=== PATIENT | male | born 1980 | race Caucasian/White ===

== ENCOUNTER 2022-04-27 12:41 | Emergency (ER) | payer BC, SELFPAY ==
[2022-04-27 12:55] VITALS: BP 122/89; PULSE 59; RESP 16; TEMP 36.4; O2SAT 99
--- NOTE | 2022-04-27 13:39 | ED.GENADULT ---
HPI - General Adult General Chief complaint: Wound/Laceration Stated complaint: Cut Rt Thumb History of Present Illness HPI narrative: Patient is a 41-year-old male who presents to the [facility] via POV for evaluation of a right thumb laceration that occurred yesterday. Additionally, patient reports he accidentally lacerated thumb on sheet-metal. Today, he was lifting some things that caused laceration to start bleeding prompting today's visit. He reports cleaning the wound after incident. He is also up-to-date on his tetanus. Related Data Home Medications Medication Instructions Recorded Confirmed No Home Medications 04/27/22 04/27/22 Allergies Allergy/AdvReac Type Severity Reaction Status Date / Time No Known Allergies Allergy Verified 04/27/22 13:05 Review of Systems Review of Systems: Pertinent negatives: fever, chills, sweats, change in appetite, malaise, headache, dizziness, LOC, lymphadenopathy, vision changes, difficulty healing, petechiae, pruritus, easy bruising, uncontrolled bleeding, range of motion, deformity, paresthesias, loss of sensation, shortness of breath, chest pain, and heart palpitations/murmurs. PMFSH Comments I have reviewed and agree with the patient's past medical, surgical, social, and family hx as documented by the RN. There is no relevant family history pertinent to the presenting complaint. Exam Narrative: GENERAL: Well-appearing, well-nourished, and in no acute distress. HEAD: Normocephalic, atraumatic. No facial swelling appreciated. EYES: PERRLA and EOMI. No evidence of erythema, swelling, or drainage. ENT: Nares clear, no rhinorrhea or epistaxis.Mucous membranes moist and pink. Uvula is midline without erythema and swelling. No evidence of obstruction, petechial rash, cobblestoning, lesions, ulcers, erythema, swelling, exudates, peritonsillar abscess, tenting, or drooling. Breath odor and voice normal. NECK: Supple. No Lymphadenopathy or nuchal rigidity appreciated. CHEST: Bilateral lung torres are clear to auscultation. No respiratory distress. No evidence of cough or pleuritic cp upon examination. HEART: Regular rate and rhythm. No murmur, gallop, or rub heard. EXTREMITIES: Normal range of motion. No edema. SKIN: Warm, dry. 0.5 cm laceration noted to palmar aspect of right thumb. Laceration is linear and clean. No evidence of cellulitis, abscess, streaking, skin flap, drainage, or bleeding. NEURO: No focal deficits. Alert and oriented x3. Course Course Level of Care: Express Care Visit Vital Signs Vital signs: Vital Signs Temperature 97.6 F 04/27/22 12:55 Pulse Rate 59 L 04/27/22 12:55 Respiratory Rate 16 04/27/22 12:55 Blood Pressure 122/89 04/27/22 12:55 Pulse Oximetry 99 04/27/22 12:55 Oxygen Delivery Room Air 04/27/22 12:55 Temperature 97.6 F 04/27/22 12:55 Pulse Rate 59 L 04/27/22 12:55 Respiratory Rate 16 04/27/22 12:55 Blood Pressure 122/89 04/27/22 12:55 Pulse Oximetry 99 04/27/22 12:55 Oxygen Delivery Room Air 04/27/22 12:55 Procedures Orthopedic Splinting/Casting Injury #1: Splinting/Casting Date: 04/27/22 Splinting/Casting Time: 13:53 Side: right Upper Extremity Injury Location: finger (Thumb) Upper Extremity Immobilizer: aluminum form splint Pre-Procedure Neuro Vascular Exam: normal Post-Procedure Neuro Vascular Exam: normal Medical Decision Making Differential Diagnosis Differential Diagnosis: Laceration, abrasion, avulsion Medical Records Medical records reviewed: Yes I reviewed the external patient's medical records. Vital Signs Vital Signs: Vital Signs Temperature 97.6 F 04/27/22 12:55 Pulse Rate 59 L 04/27/22 12:55 Respiratory Rate 16 04/27/22 12:55 Blood Pressure 122/89 04/27/22 12:55 Pulse Oximetry 99 04/27/22 12:55 Oxygen Delivery Room Air 04/27/22 12:55 Temperature 97.6 F 04/27/22 12:55 Pulse Rate 59 L
== END 2022-04-27 13:50 | disposition home or self-care (01) ==
PROVIDERS: Emergency Provider Nurse Practitioner Family; PCP Family Medicine
DX: S61.011A Laceration without foreign body of right thumb without damage to nail, initial encounter (principal); W26.8XXA Contact with other sharp object(s), not elsewhere classified, initial encounter
CPT/HCPCS: 29130; 99212; G0463

== ENCOUNTER 2025-09-04 09:32 | Emergency (ER) | payer BC, SELFPAY ==
--- NOTE | ~2025-09-04 | XR_ITS ---
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 Pain anterolateral Comparison: None Technique: AP chest, 3 views left ribs Findings/impression: 1. No acute cardiopulmonary abnormality. 2. No rib fracture identified. 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
--- OUTSIDE RECORDS SUMMARY | 2025-09-04 09:35 | XMS_ITS | Clinical Summary ---
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
--- OUTSIDE RECORDS SUMMARY | 2025-09-04 09:35 | XMS_ITS | Clinical Summary ---
Author Organization [facility] Address [address] [address] Care Team Providers Care Cash Office Worker Name Role Phone Juan Manuel Oh MD Primary Care Provider [phone] Source Comments [facility],non-owned Affiliates and Associated Physician Practices is amultiple site organization consisting of ambulatory clinics and hospital sitesin [place], [place], [place] and [place]. This disclosure is being madepursuant to the Care Everywhere program and may not contain all information available regarding this patient. Last updated 18.[facility] Allergies No known active allergies Medications * Be aware that medications may not be up to date on this document. Alwaysverify current medications with the patient. polyethylene glycol (Golytely) solution Drink 3/4th of prep solution at 5pm the night before colonoscopy. Finish the prep at 4am the day of test. 4000 mL 01/05/2025 Active atorvastatin (Lipitor) 20 MG tablet Take 1 (one) tablet by mouth once daily 11/26/2024 Active Active Problems Problem Noted Date Diagnosed Date Hypercholesterolemia 01/10/2025 Resolved Problems Problem Noted Date Diagnosed Date Resolved Date Lateral epicondylitis 02/08/20142024 Family History Medical History Relation Name Comments Hypertension Father Relation Name Status Comments Father Social History Tobacco Use Types Packs/Day Years Used Date Smoking Tobacco: Former Cigarettes 0.5 11 Smokeless Tobacco: Never Tobacco Cessation:Counseling Given: No Alcohol Use Standard Drinks/Week Comments Yes 0 (1 standard drink = 0.6 oz pur e alcohol) Social Sex and Gender Information Value Date Recorded Sex Assigned at Not on file Legal Sex Male 5:57 AM RADIOLOGY SUPERVISOR Gender Identity Not on file Sexual Orientation Not on file Last Filed Vital Signs Vital Sign Reading Time Taken Comments Blood Pressure 114/82 01/11/2025 9:15 AM CDT Pulse 54 01/11/2025 9:15 AM CDT Temperature 36.1 C (97 F) 01/11/2025 8:43 AM CDT Respiratory Rate 21 01/11/2025 9:15 AM CDT Oxygen Saturation 97% 01/11/2025 9:15 AM CDT Inhaled Oxygen Concentration - - Weight 96.9 kg (213 lb 11.2 oz) 01/11/2025 7:29 AM CDT Height 182.9 cm (6') 01/11/2025 7:29 AM CDT Body Mass Index 28.98 01/11/2025 7:29 AM CDT Plan of Treatment Health Maintenance Due Date Last Done Comments COLOGUARD (AGES 45-75) - COL ON CA SCREENING 1979 CT COLONOGRAPHY - COLON CA SCREENING 1979 FIT - COLON CA SCREENING 1979 FLEX SIG - COLON CA SCREENING 1979 DTAP/TDAP/TD VACCINES (1 - Tdap) 1998 HEPATITIS B VACCINE (1 of 3 - 19+ 3-dose series) 1998 HPV VACCINE (1 - 3-dose SCDM series) 2006 DEPRESSION SCREENING 10/27/2024 COVID-19 VACCINE (3 - 2024-2 6 season) 2025 02/14/2021, 01/11/2021 INFLUENZA VACCINE (#1) 2025 09/03/2022 ZOSTER VACCINE (1 of 2) 2029 COLON MONITORING 01/11/2035 01/11/2025, 01/11/2025 COLONOSCOPY - COLON CA SCREENING 01/11/2035 01/11/2025, 01/11/2025 Colorectal Cancer Screening 01/11/2035 HEPATITIS C SCREENING Completed 09/01/2014 HIV SCREENING Completed 09/01/2014 HIB VACCINE Aged Out No longer eligi ble based on patient's age to complete this topic MENINGOCOCCAL (Group B) VACCINE SHARED DECISION-MAKING Aged Out No longer eligible based on patient's age to complete this topic MENINGOCOCCAL GROUPS A/C/Y/W VACCINE Aged Out No longer eligible b ased on patient's age to complete this topic PNEUMOCOCCAL VACCINE Aged Out No long er eligible based on patient's age to complete this topic Procedures Procedure Name Priority Date/Time Associated Diagnosis Comments ENDOSCOPY, COLON, SCREENING Routine 01/11/2025 7:45 AM CDT HEPATITIS SCREEN ACUTE Routine 09/01/2014 9:30 AM RADIOLOGY SUPERVISOR Pain passing urine HIV-1 HIV-2 ANTIBODY Routine 09/01/2014 9:30 AM RADIOLOGY SUPERVISOR Pain passing urine from Last 3 Months or Most Recently Relevant to Health Maintenance Results * ENDOSCOPY, COLON, SCREENING (01/11/2025 7:45 AM CDT) Report Endoscopy POC Endoscopy Department Report _ Patient Name: Jerald Mccall Procedure Date: 01/11/2025 7:45 AM Date of : 1980 Classification: Outpatient Gender: Male Ethnicity: Not or Race: White _ Providers: Imtiaz Mcfarland MD Referring MD: May Douglas (Referring MD) Procedure: Colonoscopy Indications: Screening for colorectal malignant neoplasm (first colonoscopy) Medications: Monitored Anesthesia Care Description of Procedure: Pre-Anesthesia Assessment: - Prior to the procedure, a History and Physical was performed, and patient medications and allergies were reviewed. The patient's tolerance of previous anesthesia was also reviewed. The risks and benefits of the procedure and the sedation options and risks were discussed with the patient. All questions were answered, and informed consent was obtained. Prior Anticoagulants: The patient has taken no anticoagulant or antiplatelet agents. ASA Grade Assessment: I - A normal, healthy patient. After reviewing the risks and benefits, the patient was deemed in satisfactory condition to undergo the procedure. After I obtained informed consent, the scope was passed under direct vision. Throughout the procedure, the patient's blood pressure, pulse, and oxygen saturations were monitored continuously. The Colonoscope was introduced through the anus and advanced to the cecum, identified by appendiceal orifice and ileocecal valve. The colonoscopy was performed without difficulty. The patient tolerated the procedure well. The quality of the bowel preparation was excellent. The ileocecal valve, appendiceal orifice, and rectum were photographed. Findings: The perianal and digital rectal examinations were normal. Pertinent negatives include normal sphincter tone, no palpable rectal lesions and normal prostate (size, shape, and consistency). A single medium-mouthed diverticulum was found in the sigmoid colon. The exam was otherwise without abnormality on direct and retroflexion views. No polyps, masses or other mucosal abnormalities. Estimated Blood Loss: Estimated blood loss: none. Complications: No immediate complications. Impression: - Diverticulosis in the sigmoid colon. - The examination was otherwise normal on direct and retroflexion views. - No specimens collected. Recommendation: - Patient has a contact number available for emergencies. The signs and symptoms of potential delayed complications were discussed with the patient. Return to normal activities tomorrow. Written discharge instructions were provided to the patient. - Resume previous diet. - Continue present medications. - Repeat colonoscopy in 10 years for surveillance. - Return to primary care physician as previously scheduled. Attending Participation: I personally performed the entire procedure. Procedure Code(s): --- Professional --- 38991, Colonoscopy, flexible; diagnostic, including collection of specimen(s) by brushing or washing, when performed (separate procedure) Diagnosis Code(s): --- Professional --- K57.30, Diverticulosis of large intestine without perforation or abscess without bleeding Z12.11, Encounter for screening for malignant neoplasm of colon CPT copyright 2021 [employer]. All rights reserved. The codes documented in this report are preliminary and upon surveyor geodetic review may be revised to meet current compliance requirements. Imtiaz Mcfarland MD 01/11/2025 8:40:23 AM This report has been signed electronically. Note Initiated On: 01/11/2025 7:45 AM Number of Addenda: [id number] [place] [address] PROVATION 01/11/2025 7:45 AM CDT us Imtiaz Manzanares MD GI PROCEDURE ORDER IVETH Edited Result - Final [facility] PROVATION * HIV-1 HIV-2 ANTIBODY (09/01/2014 9:30 AM RADIOLOGY SUPERVISOR) HIV-1 Antibody O.D. Ratio <1.00 <1.00 [facility] ACCOUNT BILL Comment:Index Value: Specime n reactivity relative to the negative cutoff. HIV-1/HIV-2 Non Reactive Non Reactive [facility] ACCOUNT BILL Blood specimen (specimen) URINE / Unknown 09/01/2014 9:30 AM RADIOLOGY SUPERVISOR 09/01/2014 9:08 PM RADIOLOGY SUPERVISOR Narrative Resulting Agency Comment [facility] [place] [address] [facility] [id number] us Bethanie Vela DE ICER-ORDER FILLER LAB - CHEMISTRY ORDER IVETH Final Result Performing Organization Address City/[facility]/ZIP Co de Phone Number [facility] ACCOUNT BILL [address] [place] [address] * HEPATITIS SCREEN ACUTE (09/01/2014 9:30 AM RADIOLOGY SUPERVISOR) Hepatitis A Virus Antibody IgM Negative Negative [facility] ACCOUNT BILL Hepatitis B Virus Surface Antigen Negative Negative [facility] ACCOUNT BILL Hepatitis B Core Virus Antibody IgM Negative Negative [facility] ACCOUNT BILL Hepatitis C Antibody <0.1 0.0 - 0.9 s/co ratio [facility] ACCOUNT BILL Comment: Negative: < 0.8 Indeterminate: 0.8 - 0.9 Positive: > 0.9 . In order to reduce the incidence of a false positive result, the CDC recommends that all s/co ratios between 1.0 and 10.9 be confirmed by a more specific supplemental or PCR testing. [facility] offers HCV Ab w/Reflex to Verification test #[id number]. Blood specimen (specimen) URINE / Unknown 09/01/2014 9:30 AM RADIOLOGY SUPERVISOR 09/01/2014 9:08 PM RADIOLOGY SUPERVISOR Narrative Resulting Agency Comment [facility] [place] [facility] [address] [facility] [id number] Bethanie Vela DE ICER-ORDER FILLER LAB - CHEMISTRY ORDER IVETH Final Result [facility] ACCOUNT BILL [address] [place] [address] from Last 3 Months or Most Recently Relevant to Health Maintenance Insurance [facility] * Guarantor: [employer] Account Type Relation to Patient Date of Phone Billing Address Company Employer 1975 [phone] (Work) [address] [place] [phone] [employer] Member Subscriber Plan / Payer (Ef fective for All Dates) Name:Jerald Mccall Member ID:Not on file Relation to Subscriber:Employee Subscriber ID:Not on file [phone] (Home) Address: [address] [place] [id number] Payer ID:Not on file Group ID:Not on file Type:Commercial [employer] Member Subscriber Plan / Payer (Ef fective for All Dates) Name:Jerald Mccall Member ID:Not on file Relation to Subscriber:Employee Subscriber ID:Not on file [phone] (Home) Address: [address] [place] [address] Payer ID:Not on file Group ID:Not on file Type:Commercial Care Teams Cash Office Worker Relationship Specialty Start Date End Date Juan Manuel Oh MD PCP - General Family Medicine 02/08/14
--- OUTSIDE RECORDS SUMMARY | 2025-09-04 09:35 | XMS_ITS | Encounter Summary ---
Author Organization [facility] Address [address] [place] [address] Support Name Relationship Address Phone Ja Mccall Personal Relationship [address] [place] [address] Care Team Providers Care Individual Small Group Instructor Name Role Phone Ernst Laguerre MD Primary Care Provider [phone] Encounter Details Date Type Department Care Team (Late st Contact Info) Description 07/28/1999 Emergency [facility] Juan Manuel Granado MD 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
--- OUTSIDE RECORDS SUMMARY | 2025-09-04 09:35 | XMS_ITS | Encounter Summary ---
Author Organization [facility] Address [address] [place] [address] Care Team Providers Care Yarn Cleaner Name Role Phone May Douglas DO Primary Care Provider [phone] Encounter Details Date Type Department Care Team (Late st Contact Info) Description 10/13/2020 MyChart Message Enc [facility] [address], [address] [place] [address] May Douglas DO [address] [place], [place] [phone] RE: Test Results Social History Tobacco Use Types Packs/Day Years Used Date Smoking Tobacco: Some Days Electronic Cigarettes Smokeless Tobacco: Never Comments:Vape Alcohol Use Standard Drinks/Week Comments Not Currently 0 (1 standard drink = 0.6 oz pur e alcohol) social Sex and Gender Information Value Date Recorded Sex Assigned at Male 11/23/2024 3:33 PM ZONE MANAGER Legal Sex Male 9:13 PM CDT Gender Identity Male 11/23/2024 3:33 PM ZONE MANAGER Sexual Orientation Not on file COVID-19 Exposure Response Date Recorded In the last month, have you been in contact with someone who was confirmed or suspected to have Coronavirus / COVID-19? Yes 10/11/2020 2:10 PM ZONE MANAGER documented as of this encounter Plan of Treatment Upcoming Encounters Date Type Department Care Team (Late st Contact Info) Description 09/07/2025 7:20 AM ZONE MANAGER Office Visit [facility] [address], [address] [place] [address] May Douglas DO [address] [place] [address] documented as of this encounter Visit Diagnoses Not on filedocumented in this encounter Additional Health Concerns Infection Onset Date Last Indicated Resolved Time COVID-19 Rule Out 10/11/2020 10/11/2020 10/13/2020 5:30 PM ZONE MANAGER COVID-19 Rule Out 10/16/2020 10/16/2020 10/16/2020 3:46 PM ZONE MANAGER documented as of this encounter Care Teams Yarn Cleaner Relationship Specialty Start Date End Date May Douglas DO [address] [place] [address] PCP - General FAMILY PRACTICE 05/05/20 documented as of this encounter
--- OUTSIDE RECORDS SUMMARY | 2025-09-04 09:35 | XMS_ITS | Clinical Summary ---
Author Organization [facility] Address [address] [place] [address] Care Team Providers Care Burner Hand Name Role Phone May Douglas DO Primary Care Provider [phone] Allergies No known active allergies Medications meloxicam (MOBIC) 15 MG tabletIndicatio ns:Elbow swelling, right,Hx of elbow surgery TAKE 1 TABLET(15 MG) BY MOUTH DAILY 30 tablet 5 Active meloxicam (MOBIC) 15 MG tabletIndicatio ns:Elbow swelling, right,Hx of elbow surgery TAKE 1 TABLET(15 MG) BY MOUTH DAILY 30 tablet 5 08/08/20 25 Discontinued Active Problems Problem Noted Date Diagnosed Date Elevated AST (SGOT) 05/18/2020 Mixed hyperlipidemia 05/18/2020 Engages in vaping 05/09/2020 Resolved Problems Problem Noted Date Diagnosed Date Resolved Date Anxiety 10/30/2018 05/09/2020 Smoking 10/30/2018 05/09/2020 Encounter for preventive health examination 01/19/2016 05/18/2020 Lateral epicondylitis 10/11/20132019 Arthralgia of elbow 10/06/2013 05/18/20 20 Immunizations Immunization Administration Dates Next Due Fluzone 6 Months+ Quad (0.5 mL Prefilled Syringe ) 09/03/2022 MODERNA COVID-19 (12+) MRNA, LNP-S, PF, 100 MCG/ 0.5 ML DOSE 02/14/2021,01/11/2021 Pneumococcal (Prevnar 20) 09/03/2022 Tdap (Adacel) 02/26/2022 Typhoid (Typhim ) 02/23/2022 Family History Medical History Relation Comments low testoterson Brother Hypertension Father high cholesterol Father Glaucoma Mother Hypertension Mother Thyroid Disease Mother high cholesterol Mother adhd Son Relation Status Comments Brother Father Mother Son Social History Tobacco Use Types Packs/Day Years Used Date Smoking Tobacco: Former Cigarettes 1 15 Smokeless Tobacco: Never Tobacco Cessation:Counseling Given: Yes Comments:Actively Vape Alcohol Use Standard Drinks/Week Comments Not Currently 1.7 (1 standard drink = 0.6 oz p ure alcohol) social PHQ-2 Answer Date Recorded Patient Health Questionnaire-2 Score 2 11/23/2024 Sex and Gender Information Value Date Recorded Sex Assigned at Male 11/23/2024 3:33 PM SALES RECORD CLERK Legal Sex Male 9:13 PM CDT Gender Identity Male 11/23/2024 3:33 PM SALES RECORD CLERK Sexual Orientation Not on file Last Filed Vital Signs Vital Sign Reading Time Taken Comments Blood Pressure 138/89 04/27/2025 1:05 PM CDT Pulse 69 04/27/2025 1:05 PM CDT Temperature 36.5 C (97.7 F) 03/30/2025 1:04 PM CDT Respiratory Rate 16 04/27/2025 1:05 PM CDT Oxygen Saturation 100% 04/27/2025 1:05 PM CDT Inhaled Oxygen Concentration - - Weight 95.7 kg (211 lb) 04/27/2025 1:05 PM CDT Height 182.9 cm (6') 04/27/2025 1:05 PM CDT Body Mass Index 28.62 04/27/2025 1:05 PM CDT Plan of Treatment Upcoming Encounters Date Type Department Care Team (Late st Contact Info) Description 09/07/2025 7:20 AM SALES RECORD CLERK Office Visit [facility] Family [facility] - [address], [address] [place] [address] May Douglas DO [address] [place] [address] Health Maintenance Due Date Last Done Comments Colorectal Cancer Screening Colonoscopy (10 Years) 1979 Hepatitis B Vaccines (1 of 3 - 19+ 3-dose series) 1998 HPV Vaccines (1 - 3-dose SCDM series) 2006 COVID-19 Vaccine ( - season) 2025 02/14/2021, 02/14/2021 (Patient Reported), 01/11/2021 Influenza Adult (#1) 2025 09/03/2022 Annual Physical 11/23/2025 11/23/2024, 05/0 12/2021, 02/20/2021, Additional history exists DTaP, Tdap and Td Vaccines (2 - Td or Tdap) 02/27/2032 02/26/2022 Hepatitis C Completed 09/01/2014 Pneumococcal Vaccine: Pediatrics (0 to 5 Years) and At-Risk Patients (6 to 49 Years) Aged Out 09/03/2022 No longer eligible based on patient's age to complete this topic PHQ-2 (Physician [place]) Completed 11/23/2024 Hepatitis A Vaccines Aged Out No long er eligible based on patient's age to complete this topic Meningococcal B Vaccine Aged Out No l onger eligible based on patient's age to complete this topic Meningococcal Vaccine Aged Out No flavio javy eligible based on patient's age to complete this topic RSV Immunizations Under 20 Months Aged Out No longer eligible based on patient's age to complete this topic Insurance [facility] Care Teams Burner Hand Relationship Specialty Start Date End Date May Douglas DO [address] [place] [id number] PCP - General FAMILY PRACTICE 05/05/20
--- OUTSIDE RECORDS SUMMARY | 2025-09-04 09:35 | XMS_ITS | Encounter Summary ---
Author Organization [employer] Address [address] [place] [address] Support Name Relationship Address Phone Ja Mccall Personal Relationship [address] [place] [address] Care Team Providers Care Manager Express Name Role Phone Ernst Laguerre MD Primary Care Provider [phone] Encounter Details Date Type Department Care Team (Late st Contact Info) Description 12/14/2002 Emergency [facility] Luz Maria Griffith MD NO ADDRESS ON FILE Er, Authorized P NO ADDRESS ON FILE CONTUSION OF CHEST WALL (Primary Dx) Social History Tobacco Use Types Packs/Day Years Used Date Smoking Tobacco: Never Assessed Sex and Gender Information Value Date Recorded Sex Assigned at Not on file Legal Sex Male 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
[2025-09-04 09:43] VITALS: BP 120/57; PULSE 79; RESP 18; TEMP 36.6; O2SAT 98
--- NOTE | 2025-09-04 10:12 | ED.GENADULT ---
HPI - General Adult General Chief complaint: Unspecified Stated complaint: L Rib Time Seen by Provider: 09/04/25 10:03 Source: patient and RN notes reviewed Mode of arrival: ambulatory Limitations: no limitations History of Present Illness HPI narrative: 44-year-old male patient presents today complaining of left anterolateral rib pain. 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 Currently rates his pain 5/10 with deep breath. He tried Tylenol, ice, heat with some improvement last night. Denies shortness of breath. Related Data Home Medications ?Medication ?Instructions ?Recorded ?Confirmed ?Last Taken ?Type meloxicam 15 mg tablet mg 09/04/25 Unknown History Allergies Allergy/AdvReac Type Severity Reaction Status Date / Time No Known Allergies Allergy Verified 09/04/25 09:44 PMFSH Comments At time of signature, I have reviewed and agree with nursing past medical, surgical, social and family history unless otherwise noted. Please see nursing chart for further information. There is no relevant family history pertinent to the presenting complaint Exam Narrative: GENERAL: Well-appearing, well-nourished, and in no acute distress. HEAD: Normocephalic, atraumatic. EYES: EOMI. No redness or drainage. Conjunctivae normal. ENT: Mucous membranes pink and moist. NECK: Normal AROM. CHEST: No respiratory distress. Clear to auscultation. Mild tenderness along the left anterolateral ribs without edema, ecchymosis, step-off or crepitus. HEART: Regular rate and rhythm. No murmur appreciated. EXTREMITIES: Normal range of motion. No edema. SKIN: Warm, dry, no rash. Capillary refill normal. Normal skin turgor. NEURO: No focal deficits. Alert and oriented x3. Gait steady. PSYCH: Normal affect. No signs of depression or anxiety. Course Course Level of Care: Express Care Visit Vital Signs Vital signs: Vital Signs Temperature 97.8 F 09/04/25 09:43 Pulse Rate 79 09/04/25 09:43 Respiratory Rate 18 09/04/25 09:43 Blood Pressure 120/57 L 09/04/25 09:43 Pulse Oximetry 98 09/04/25 09:43 Oxygen Delivery Room Air 09/04/25 09:43 Temperature 97.8 F 09/04/25 09:43 Pulse Rate 79 09/04/25 09:43 Respiratory Rate 18 09/04/25 09:43 Blood Pressure 120/57 L 09/04/25 09:43 Pulse Oximetry 98 09/04/25 09:43 Oxygen Delivery Room Air 09/04/25 09:43 Reviewed Medical Decision Making MDM Narrative Medical decision making narrative: 44-year-old male patient presents today complaining of left anterolateral rib pain. 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 Currently rates his pain 5/10 with deep breath. He tried Tylenol, ice, heat with some improvement last night. Denies shortness of breath. Upon exam, Mild tenderness along the left anterolateral ribs without edema, ecchymosis, step-off or crepitus. Chest x-ray negative. Discussed OTC treatments at home suggested instead for anti-inflammatory properties. Patient agrees with plan. Vital signs stable. Anticipatory guidance given. Differential Diagnosis Differential Diagnosis: Rib fracture, chest contusion Vital Signs Vital Signs: Vital Signs Temperature 97.8 F 09/04/25 09:43 Pulse Rate 79 09/04/25 09:43 Respiratory Rate 18 09/04/25 09:43 Blood Pressure 120/57 L 09/04/25 09:43 Pulse Oximetry 98 09/04/25 09:43 Oxygen Delivery Room Air 09/04/25 09:43 Temperature 97.8 F 09/04/25 09:43 Pulse Rate 79 09/04/25 09:43 Respiratory Rate 18 09/04/25 09:43 Blood Pressure 120/57 L 09/04/25 09:43 Pulse Oximetry 98 09/04/25 09:43 Oxygen Delivery Room Air 09/04/25 09:43 Imaging Data Radiologist's impression: Findings/impression: 1. No acute cardiopulmonary abnormality. 2. No rib fracture identified. 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 Continue [id number] treatment as needed. Follow-up with your PCP in 1 week if symptoms are not improving. Patient Language: Montenegrin Prescriptions: No Action meloxicam 15 mg tablet Follow-up/Referrals: Stella,May, DO [Primary Care Provider, Unknown] Time of Disposition: 10:30
== END 2025-09-04 10:32 | disposition home or self-care (01) ==
PROVIDERS: Emergency Provider Nurse Practitioner; PCP Family Medicine
DX: S20.212A Contusion of left front wall of thorax, initial encounter (principal); V86.39XA Unspecified occupant of other special all-terrain or other off-road motor vehicle injured in traffic accident, initial encounter
CPT/HCPCS: 71101; 99213; G0463